=== PATIENT | female | born 1985 | race African-American/Black ===

== ENCOUNTER 2023-07-12 23:16 | Emergency (ER) | payer MEDICAID ==
[~2023-07-12] VITALS: Ht 162.6 cm; Wt 83.6 kg
[2023-07-12 23:33] VITALS: BP 118/72; PULSE 68; RESP 16; O2SAT 99
[2023-07-13] MEDS ORDERED: METOCLOPRAMIDE HCL 10 MG TAB PO ONE (01:00)
[2023-07-13] MEDS ORDERED: SODIUM CHLORIDE 0.9% 1,000 ML IVB ONE ×2 (01:00)
[2023-07-13] MEDS ORDERED: KETOROLAC TROMETH 30 MG/ML 1ML VIAL IV ONE (01:00)
[2023-07-13] MEDS ORDERED: ONDANSETRON HCL 4 MG/2 ML VIAL IV ONE (01:00)
[2023-07-13] MEDS ORDERED: ACETAMINOPHEN 325 MG TAB PO ONE (01:00)
[2023-07-13] MEDS ORDERED: MECLIZINE HCL 25 MG TAB PO ONE (01:00)
[2023-07-13 01:33] LABS: Alanine Aminotransferase 15 U/L (7-40); Alkaline Phosphatase 56 U/L (46-116); Anion Gap 5 (5-15); Aspartate Aminotransferase 9 U/L (13-40); Blood Alcohol < 3.0 mg/dL (<10); Blood Urea Nitrogen 9 mg/dL (9-23); Calcium 8.8 mg/dL (8.7-10.4); Carbon Dioxide 27 mmol/L (20-30); Chloride 107 mmol/L (98-107); Glucose 99 mg/dL (74-106); Magnesium 1.9 mg/dL (1.6-2.6); Potassium 4.1 mmol/L (3.5-5.1); Sodium 139 mmol/L (136-145)
[2023-07-13 01:34] LABS: Bilirubin, Total 0.2 mg/dL (0.2-1.0); Total Protein 6.6 g/dL (5.7-8.2)
[2023-07-13 01:51] LABS: Basophils # (auto) 0 10 ^3/uL (0-0.2); Basophils % (auto) 0.7 % (0.0-2.0); Eosinophils # (auto) 0.1 10 ^3/uL (0-0.8); Eosinophils % (auto) 1.5 % (0.0-7.0); Hematocrit 39.2 % (36.0-46.0); Lymphocytes # (auto) 2.7 10 ^3/uL (0.4-5.4); Lymphocytes % (auto) 36.5 % (10.0-50.0); Mean Corpuscular Hemoglobin 28.3 pg (28.0-32.0); Mean Corpuscular Hgb Conc. 33.1 g/dL (32.0-36.0); Mean Corpuscular Volume 85.4 fL (80.0-100.0); Monocytes # (auto) 0.5 10 ^3/uL (0-1.3); Monocytes % (auto) 6.7 % (0.0-12.0); Neutrophils % (auto) 54.6 % (37.0-80.0); Red Blood Cells 4.59 10^6/uL (4.0-5.20); Red Cell Distribution Width 14.5 % (11.8-14.3); White Blood Cell 7.3 10^3/uL (4.4-10.8)
[2023-07-13 04:35] LABS: BUN/Creatinine Ratio 9.8 (10.0-20.0)
== END 2023-07-13 05:06 | disposition left against medical advice (07) ==
LOC: ER 23:16
DX: R42 Dizziness and giddiness (principal); M54.50 Low back pain, unspecified; Z79.899 Other long term (current) drug therapy
CPT/HCPCS: 36415; 70450; 71045; 72125; 72131; 80053; 80320; 83735; 83880; 84484; 85025; 96361; 96374; 96375; 99285; J1885; J2405; J7030; J8597

== ENCOUNTER 2024-06-18 15:04 | Inpatient (IN) | payer MEDICAID ==
[~2024-06-18] VITALS: Ht 165.1 cm; Wt 98.8 kg
--- NOTE | 2024-06-18 15:35 | ED.PDOC ---
GI ASSESSMENT HPI Comments HPI: Poor Historian. 38-year-old female presents to the chart for one day history of epigastric pain that is constant nonradiating with associated nausea. Denies any vomiting or diarrhea. Patient went to urgent Care was sent here for further evaluation. Patient states she had this kind of pain in the past and was usually due to constipation. Patient has increased urinary frequency but denies any burning with urination. Pain is nonradiating. Pain is worse with food. Past Medcial History: Migraines, constipation, Past Surgical History: Foot surgery, right breast lumpectomy noncancerous REVIEW OF SYSTEMS: CONSTITUTIONAL: Denies acute: fever, diaphoresis, chills, HEAD: Denies acute: headache, photophobia Eyes: Denies acute: Double vision, vision loss, eye pain, eye discharge. EARS: Denies acute: tinnitus, hearing loss, ear discharge, ear pain, THROAT: Denies acute: sore throat, swelling, difficulty swallowing , pain with swallowing, change in voice. NECK: Denies acute: neck pain, neck swelling, stiff neck. HEART: Denies acute : chest pain, palpitations, LUNGS: Denies acute: SOB, wheezing, cough, hemoptysis ABDOMEN: Denies acute: Vomiting, diarrhea, melena , hematemesis, hematochezia SKIN: Denies acute: rash, redness, lesions, itchiness. EXTREMITIES: Denies acute: calf pain, numbness, tingling, weakness, denies pain in extremity. Denies acute: Low back pain. Neuro: Denies acute: focal neurological deficit, motor or sensory focal neurological deficit, tremors, seizure like activity, confusion, dizziness, change in mental status, loss of bowel or bladder function, cauda equina like symptoms. : Denies acute: dysuria, hematuria, flank pain, PSYCH: Denies acute: hallucination, suicidal ideation, homicidal ideation. FEMALE: Denies acute: abnormal vaginal bleeding, foul odor, unusual discharge. PHYSICAL EXAM: General: no acute distress, awake and alert. Head: normocephalic, atraumatic. Neck: supple, trachea is midline, no swelling. Throat: Normal phonation. Eyes:, no erythema, no purulent discharge, no proptosis, no icterus. Heart: regular rate, regular rhythm, no significant murmur appreciated. Lungs: no apparent respiratory distress, Able to speak in full sentences. No wheezing, no rhonchi, no crackles. No stridors Clear to auscultation bilaterally. Abdomen: non tender to palpation, non distended, soft, no guarding, no rebound, + bowel sounds. Neuro: Awake, Alert, oriented to name, self, situation, follows commands GCS=15. Speech is normal. Skin: no petechia, no purpura, no cyanosis, non-pale, not jaundice. Lower extremities: --no - Pitting edema no deformity, no focal swelling, no calf TTP. Makes eye contact. moves all four extremities. Face: no apparent facial droop. No CVA tenderness to percussion bilaterally. Ambulating in the ED independently. Ears: Normal appearing TM b/l, Stroke: finger to nose cerebellar testing is intact. No pronator drift. Symmetrical recyclable products sorter muscle strength b/l PERRLA, EOM-I CN 2-12 are grossly intact, Pedal pulses are palpable. No nystagmus. No nuchal rigidity, Kernig's sign, Brudzinski's sign, no meningeal signs. Chief Complaint: Abdominal Pain Time Seen by MD: 15:22 Primary Care Provider: LAW Reviewed Notes: Nurses Notes, Allergies Allergies: Coded Allergies: NO KNOWN ALLERGIES (Unverified , 09/13/15) Home Meds Active Scripts Metronidazole (Metronidazole) 500 Mg Tab, 500 MG PO TID for 5 Days, #15 TAB Prov:GENNA ARMSTRONG RESIDENT 06/21/24 Ciprofloxacin Hcl (Ciprofloxacin Hcl) 500 Mg Tab, 1 TAB PO BID for 5 Days, #10 TAB Prov:GENNA ARMSTRONG RESIDENT 06/21/24 Information Source: Patient Mode of Arrival: Wheelchair Past Medical History PAST MEDICAL HISTORY: Denies Surgical History: Denies all surgeries Social History Smoker: Cigarettes, Less Than 1 Pack/Day Alcohol: Rarely Drugs: Denies Drug Use Lives In: Home Was a procedure done? Was a procedure done?: No GI differential Dx Differential Diagnosis: Other (DDX include Diverticulitis, colitis, gastroenteritis, acute abdomen, SBO, enteritis, constipation, volvulus, appendicitis, Gallbladder disease, choledocolithiasis, ascending cholangitis, pancreatitis, intraAbdominal mass/neoplasm, hepatitis, UTI, pylonephritis, kidney stone, aneurysm, dissection, Inflammatory bowel disease, gastroparesis, ischemic bowel, ovarian torsion, ovarian cyst/mass, tubo-ovarian abscess, , ectopic , PID, STD.) X-Ray, Labs, Meds, VS Vital Signs Date Time Temp Pulse Resp B/P (MAP) Pulse Ox O2 Delivery O2 Flow Rate FiO2 06/18/24 22:08 68 14 98 Room Air* 0 21 06/18/24 21:34 116/76 06/18/24 20:46 98.1 72 18 108/77 (87) 100 98.1 06/18/24 17:07 97.7 83 20 141/100 (114) 100 97.7 06/18/24 17:07 83 20 100 Room Air 06/18/24 15:36 80 06/18/24 15:25 98.8 75 17 140/83 (102) 100 Lab Test 06/18/24 16:23 06/18/24 15:46 Range/Units Urine Color Light-yellow Yellow Urine Clarity Clear Clear Urine pH 5.0 5.0-9.0 Urine Specific [place] 1.013 1.001-1.035 Urine Protein Negative Negative Urine Ketones 1+ H Negative Urine Blood Negative Negative /uL Urine Nitrite Negative Negative Urine Bilirubin Negative Negative Urine Urobilinogen Normal Negative mg/dL Urine Leukocyte Esterase Negative Negative /uL Urine RBC None seen 0 - 4 /hpf Urine WBC <1 0 - 5 /hpf Urine Squamous Epithelial Cells Few <5 /hpf Urine Bacteria None seen None Seen /hpf Urine Glucose Normal Normal mg/dL White Blood Count 9.0 4.4-10.8 10^3/uL Red Blood Count 4.97 4.0-5.20 10^6/uL Hemoglobin 13.8 12.2-16.2 g/dL Hematocrit 42.2 36.0-46.0 % Mean Corpuscular Volume 84.9 80.0-100.0 fL Mean Corpuscular Hemoglobin 27.8 L 28.0-32.0 pg Mean Corpuscular Hemoglobin Concent 32.7 32.0-36.0 g/dL Red Cell Distribution Width 14.9 H 11.8-14.3 % Platelet Count 366 140-450 10^3/uL Mean Platelet Volume 7.4 6.9-10.8 fL Neutrophils (%) (Auto) 72.6 37.0-80.0 % Lymphocytes (%) (Auto) 20.4 10.0-50.0 % Monocytes (%) (Auto) 6.1 0.0-12.0 % Eosinophils (%) (Auto) 0.4 0.0-7.0 % Basophils (%) (Auto) 0.5 0.0-2.0 % Neutrophils # (Auto) 6.5 1.6-8.6 10 ^3/uL Lymphocytes # (Auto) 1.8 0.4-5.4 10 ^3/uL Monocytes # (Auto) 0.5 0-1.3 10 ^3/uL Eosinophils # (Auto) 0 0-0.8 10 ^3/uL Basophils # (Auto) 0 0-0.2 10 ^3/uL Nucleated Red Blood Cells 0.2 % Sodium Level 140 136-145 mmol/L Potassium Level 4.1 3.5-5.1 mmol/L Chloride Level 108 H 98-107 mmol/L Carbon Dioxide Level 23 20-31 mmol/L Anion Gap 9 5-15 Blood Urea Nitrogen 6 L 9-23 mg/dL Creatinine 0.79 0.550-1.02 mg/dL Glomerular Filtration Rate Calc 99 >90 mL/min BUN/Creatinine Ratio 7.6 L 10.0-20.0 Serum Glucose 87 74-106 mg/dL Lactic Acid Level 1.8 0.4-2.0 mmol/L Calcium Level 9.9 8.7-10.4 mg/dL Total Bilirubin 0.3 0.2-1.0 mg/dL Aspartate Amino Transferase (AST) 17 13-40 U/L Alanine Aminotransferase (ALT) 24 7-40 U/L Alkaline Phosphatase 57 46-116 U/L Troponin I High Sensitivity < 3 L </=34 ng/L Total Protein 7.1 5.7-8.2 g/dL Albumin 4.6 3.2-4.8 g/dL Lipase 23 12-53 U/L Beta HCG, Quantitative 0.0 L 1.5-4.2 mIU/mL [address] [address] Ph: [phone] DIAGNOSTIC IMAGING Diagnostic Imaging Report : [id number] Signed PATIENT: JENNY BAUTISTA ACCT: [id number] UNIT: [id number] : 1985 LOC: ER ROOM / BED: / AGE / SEX: 38 / F ADM STATUS: REG ER SERVICE 1526 ORDERING PHYSICIAN: RUPALI JOE DO PROCEDURE(s): ABPL - CT AB PEL WO CON-NO ORAL OR IV REASON: abd pain ORDER NUMBER(s): [id number], ACCESSION NUMBER(s): [id number] Procedure: CT CT AB PEL WO CON-NO ORAL OR IV 06/18/2024 05:05 PM Indication:abd pain. Comparison Study: None available at time of dictation. Technique: Axial images were obtained and reformatted in coronal and sagittal planes. All CT scans at this medical facility are performed using dose modulation techniques as appropriate to a performed exam including the following: Automated exposure control was utilized; adjustment of the MA and/or KV according to patient size; and use of iterative reconstruction technique. CT Dose: CTDI volume is 15.18 mGy. Dose-length product is 800.15 mGy*cm FINDINGS: Lower Chest: Unremarkable. Hepatobiliary: Gallbladder is moderately distended. No gallbladder wall thickening, pericholecystic fluid or calcified gallstones noted. Spleen: Unremarkable. Pancreas: Unremarkable. Adrenal Glands: Unremarkable. tract: The kidneys are normal in size bilaterally without hydronephrosis or nephrolithiasis. The urinary bladder is unremarkable. GI tract: The stomach is grossly normal in appearance. No evidence of small bowel obstruction. The large bowel is unremarkable. A tubular structure is seen in right lower quadrant extending from the cecum to the right ovary surrounding fat stranding likely acute appendicitis. The differential diagnosis includes hydrosalpinx. Lymphatics: No mesenteric, retroperitoneal or periportal lymphadenopathy. Vasculature: The abdominal aorta is normal in in caliber. Pelvic Organs: The right ovary is slightly enlarged and appears edematous likely reactive to appendicitis. The left ovary is unremarkable. The uterus is anteverted and slightly bulky. Bones/soft tissues: No acute abnormality. Degenerative disc disease at L5-S1 noted. Other: None. IMPRESSION: 1. A tubular structure is seen in right lower quadrant extending from the cecum to the right ovary surrounding fat stranding likely acute non complicated appendicitis. The differential diagnosis includes hydrosalpinx. Recommend correlation pelvic sonogram and surgical consultation. ATED BY: MARIANNE GROSS MD DICTATED DATE/TIME: 06/18/241825 SIGNED BY: MARIANNE GROSS MD SIGNED DATE/TIME: 06/18/241825 CC: [place] [address] Ph: [phone] DIAGNOSTIC IMAGING Diagnostic Imaging Report : [id number] Signed PATIENT: JENNY BAUTISTA ACCT: [id number] UNIT: [id number] : 1985 LOC: ER ROOM / BED: / AGE / SEX: 38 / F ADM STATUS: REG ER SERVICE 37 ORDERING PHYSICIAN: RUPALI JOE DO PROCEDURE(s): PELUS - PELVIC REASON: abd pain ORDER NUMBER(s): [id number], ACCESSION NUMBER(s): [id number] Procedure: US PELVIC Study Date and Requested Time: 06/18/2024 07:43 PM Study Description: US PELVIC History: abd pain Comparison: CT abdomen and pelvis 06/18/2024 Technique: Multiple transabdominal and transvaginal high resolution tom-scale images obtained of the uterus and adnexa with color Doppler for evaluation of adnexal blood flow and vascularity as indicated. Findings: Uterus 10.1 x 5.8 x 6.3 cm, with homogeneous echotexture. Endometrium within normal limits, measuring 0.5 cm in thickness with smooth contour. Cervix within normal limits. Multiple nabothian cysts are noted, largest measuring up to 0.8 cm Right ovary measures 2.8 x 1.5 x 2.3 cm with a 0.9 cm dominant follicle /small cyst. Left ovary measures 2 x 1.4 x 2.3 cm with a 1.1 cm dominant follicle /small cyst. Normal ovarian color Doppler flow bilaterally. Small amount of free fluid of the right adnexa. Impression: Fibroid uterus. Nabothian cysts are noted. Small amount of free fluid of the right adnexa. No tubular structure is visualized over the right adnexa. The tubular structure noted on CT within the right hemipelvis appears to represent a fluid-filled distended appendix with mild adjacent fat stranding. ATED BY: LEANNA IBANEZ DO DICTATED DATE/TIME: 06/18/242036 SIGNED BY: LEANNA IBANEZ DO SIGNED DATE/TIME: 06/18/242036 CC: [address] [address] Ph: [phone] DIAGNOSTIC IMAGING Diagnostic Imaging Report : [id number] Signed PATIENT: JENNY BAUTISTA ACCT: [id number] UNIT: [id number] : 1985 LOC: OVERFLOW ROOM / BED: 1018-ER / A AGE / SEX: 38 / F ADM STATUS: ADM IN SERVICE 1 ORDERING PHYSICIAN: HAMMAD VALLE RESIDENT PROCEDURE(s): CXR1 - CHEST XRAY 1 VIEW REASON: pre op clearance ORDER NUMBER(s): [id number], ACCESSION NUMBER(s): [id number] CHEST RADIOGRAPH Indication:pre op clearance Technique: Single frontal view of the chest was obtained Comparison: XY CHEST PORTABLE on DOS: 07/13/23 FINDINGS: Lines and Tubes: None Lungs: No focal consolidation. Pleura: No effusion.No pneumothorax. Cardiomediastinal contours: Unremarkable Bones: No acute osseous abnormality. IMPRESSION: 1. No acute cardiopulmonary disease. HS:Y ATED BY: BRODIE LIZAMA MD DICTATED DATE/TIME: 06/19/24815 SIGNED BY: BRODIE LIZAMA MD SIGNED DATE/TIME: 06/19/24815 CC: Time of 1ST Reevaluation: 19:37 (The case was discussed with the General surgery team (HPI, physical exam, labs and diagnostic tests that were available at the time of disposition, ED course, treatment plan) on the phone. They to follow up with the patient in consult. They recommend admitting the patient to the hospital. Dr. Perdomo) Reevaluation 1ST: Unchanged Patient Education/Counseling: Diagnosis, Treatment Family Education/Counseling: No Family Present Comments Patient presented with the above HPI.-abdominal pain-----workup was initiated. patient was found with the above mentioned diagnosis. Patient was given: Fentanyl, fluids, Zosyn Patient ED course and VS have been stabilized. Patient has been reassessed in the ED and remained in a stable condition. Pertinent incidental findings were discussed with the patient and/or family. Patient/family voices understanding and is agreeable with plan. Patient has been observed in the ED adequate length of time to insure improvement/stability. General surgery was consulted. patient was admitted to the medicine team for further evaluation and treatment of their presentation. All the reports of any imaging studies that were ordered by myself were reviewed by myself. Departure 1 Departure Time of Disposition: 19:02 Impression: Primary Impression: Epigastric abdominal pain Additional Impression: Appendicitis Disposition: ADMITTED INPATIENT Admit to: Tele Condition: Guarded e-Prescriptions Metronidazole (Metronidazole) 500 Mg Tab 500 MG PO TID for 5 Days, #15 TAB Prov: GENNA ARMSTRONG RESIDENT 06/21/24 Ciprofloxacin Hcl (Ciprofloxacin Hcl) 500 Mg Tab 1 TAB PO BID for 5 Days, #10 TAB Prov: GENNA ARMSTRONG RESIDENT 06/21/24 Discharged With: Self Critical Care Note Critical Care Time?: No RUPALI JOE DO Jun 18, 2024 15:35
--- NOTE | 2024-06-18 16:07 | ECG ---
[facility] Test Date: 2024-06-18 Test Time: 15:36:36 Pat Name: JENNY BAUTISTA Department: ED Room: 0281 Gender: F [employer]or: : 1985 Requested By: RUPALI JOE Order Number: [id number] Reading MD: Piyush Trammell Measurements Intervals [place] Rate: 80 P: 74 [place]: 154 QRS: 17 QRSD: 85 T: 41 QT: 401 QTc: 463 Interpretive Statements Sinus rhythm Low voltage, precordial leads Electronically Signed On 06-21-2024 14:29:48 PDT by Piyush Trammell Please click the below link to view image of tracing.
[2024-06-18 16:12] LABS: Basophils # (auto) 0 10 ^3/uL (0-0.2); Basophils % (auto) 0.5 % (0.0-2.0); Eosinophils # (auto) 0 10 ^3/uL (0-0.8); Eosinophils % (auto) 0.4 % (0.0-7.0); Hematocrit 42.2 % (36.0-46.0); Hemoglobin 13.8 g/dL (12.2-16.2); Lymphocytes # (auto) 1.8 10 ^3/uL (0.4-5.4); Lymphocytes % (auto) 20.4 % (10.0-50.0); Mean Corpuscular Hemoglobin 27.8 pg (28.0-32.0); Mean Corpuscular Hgb Conc. 32.7 g/dL (32.0-36.0); Mean Corpuscular Volume 84.9 fL (80.0-100.0); Monocytes # (auto) 0.5 10 ^3/uL (0-1.3); Monocytes % (auto) 6.1 % (0.0-12.0); Neutrophils # (auto) 6.5 10 ^3/uL (1.6-8.6); Neutrophils % (auto) 72.6 % (37.0-80.0); Nucleated Red Blood Cells % 0.2 %; Platelet Count (auto) 366 10^3/uL (140-450); Red Blood Cells 4.97 10^6/uL (4.0-5.20); Red Cell Distribution Width 14.9 % (11.8-14.3)
[2024-06-18 16:24] LABS: Urine Bacteria None Seen /hpf (None Seen)
[2024-06-18 16:34] LABS: Urine Blood Negative /uL (Negative); Urine Clarity Clear (Clear); Urine Color Light-Yellow (Yellow); Urine Protein, UAD Negative (Negative); Urine Specific Gravity 1.013 (1.001-1.035); Urine Urobilinogen Normal (Negative); Urine WBC <1 /hpf (0 - 5)
[2024-06-18 16:35] LABS: Alanine Aminotransferase 24 U/L (7-40); Albumin 4.6 g/dL (3.2-4.8); Alkaline Phosphatase 57 U/L (46-116); Anion Gap 9 (5-15); Aspartate Aminotransferase 17 U/L (13-40); BUN/Creatinine Ratio 7.6 (10.0-20.0); Blood Urea Nitrogen 6 mg/dL (9-23); Calcium 9.9 mg/dL (8.7-10.4); Carbon Dioxide 23 mmol/L (20-31); Chloride 108 mmol/L (98-107); Glucose 87 mg/dL (74-106); Lipase 23 U/L (12-53); Potassium 4.1 mmol/L (3.5-5.1); Sodium 140 mmol/L (136-145)
[2024-06-18 16:36] LABS: Bilirubin, Total 0.3 mg/dL (0.2-1.0); Total Protein 7.1 g/dL (5.7-8.2)
[2024-06-18] MEDS: ONDANSETRON ODT 4 MG TAB PO ONE (16:52)
--- NOTE | 2024-06-18 18:29 | DVH ---
Procedure: CT CT AB PEL WO CON-NO ORAL OR IV 06/18/2024 05:05 PM Indication:abd pain. Comparison Study: None available at time of dictation. Technique: Axial images were obtained and reformatted in coronal and sagittal planes. All CT scans at this medical facility are performed using dose modulation techniques as appropriate t o a performed exam including the following: Automated exposure control was utilized; adjustment of th e MA and/or KV according to patient size; and use of iterative reconstruction technique. CT Dose: CTDI volume is 15.18 mGy. Dose-length product is 800.15 mGy*cm FINDINGS: Lower Chest: Unremarkable. Hepatobiliary: Gallbladder is moderately distended. No gallbladder wall thickening, pericholecystic f luid or calcified gallstones noted. Spleen: Unremarkable. Pancreas: Unremarkable. Adrenal Glands: Unremarkable. tract: The kidneys are normal in size bilaterally without hydronephrosis or nephrolithiasis. The urinary bladder is unremarkable. GI tract: The stomach is grossly normal in appearance. No evidence of small bowel obstruction. The l arge bowel is unremarkable. A tubular structure is seen in right lower quadrant extending from the cecum to the right ovary surrounding fat stranding likely acute appendicitis. The differential diag nosis includes hydrosalpinx. Lymphatics: No mesenteric, retroperitoneal or periportal lymphadenopathy. Vasculature: The abdominal aorta is normal in in caliber. Pelvic Organs: The right ovary is slightly enlarged and appears edematous likely reactive to appendic itis. The left ovary is unremarkable. The uterus is anteverted and slightly bulky. Bones/soft tissues: No acute abnormality. Degenerative disc disease at L5-S1 noted. Other: None. IMPRESSION: 1. A tubular structure is seen in right lower quadrant extending from the cecum to the right ovary [place] rrounding fat stranding likely acute non complicated appendicitis. The differential diagnosis includ es hydrosalpinx. Recommend correlation pelvic sonogram and surgical consultation.
--- NOTE | 2024-06-18 20:39 | DVH ---
Procedure: US PELVIC Study Date and Requested Time: 06/18/2024 07:43 PM Study Description: US PELVIC History: abd pain Comparison: CT abdomen and pelvis 06/18/2024 Technique: Multiple transabdominal and transvaginal high resolution tom-scale images obtained of the uterus and adnexa with color Doppler for evaluation of adnexal blood flow and vascularity as indicat ed. Findings: Uterus 10.1 x 5.8 x 6.3 cm, with homogeneous echotexture. Endometrium within normal limits, measuring 0.5 cm in thickness with smooth contour. Cervix within normal limits. Multiple nabothian cysts are noted, largest measuring up to 0.8 cm Right ovary measures 2.8 x 1.5 x 2.3 cm with a 0.9 cm dominant follicle /small cyst. Left ovary measu res 2 x 1.4 x 2.3 cm with a 1.1 cm dominant follicle /small cyst. Normal ovarian color Doppler flow b ilaterally. Small amount of free fluid of the right adnexa. Impression: Fibroid uterus. Nabothian cysts are noted. Small amount of free fluid of the right adnexa. No tubular structure is visualized over the right adnexa. The tubular structure noted on CT within th e right hemipelvis appears to represent a fluid-filled distended appendix with mild adjacent fat stra nding.
[2024-06-18] MEDS: fentaNYL CITRATE 100 MCG/2 ML VL IV ONE (21:34)
[2024-06-18] MEDS: PIPERACILLIN-TAZOB 3.375GM 100 ML IV ONE (21:41)
[2024-06-18] MEDS: SODIUM CHLORIDE 0.9% 1,000 ML IV ONE (21:41)
[2024-06-18 22:08] VITALS: PULSE 68; RESP 14; O2SAT 98
[2024-06-18] MEDS ORDERED: MORPHINE SULFATE INJ 2 MG/ml SYRG IV PRN (22:45)
[2024-06-18] MEDS: SODIUM CHLORIDE 0.9% 1,000 ML IV SCH (22:45)
[2024-06-18] MEDS ORDERED: NITROGLYCERIN 0.4 MG SL TAB SL PRN (22:45)
--- NOTE | 2024-06-18 23:39 | DVHHPRES ---
History of Present Illness Resident Creating Document: HAMMAD VALLE RESIDENT History of Present Illness JENNY BAUTISTA is a 38 years old female with no significant past medical history presented to the ED with the chief complaints of epigastric pain since on the day of admission. Patient reported this morning she started having intermittent abdominal pain, which is sharp and burning with the no radiation initially , associated with nausea vomiting . Patient does report pain in the umbilical and right lower quadrant and having constipation. On my assessment patient denies fever, headache, chest pain, palpitations, diarrhea and other associated symptoms. Past Medical History Migraine Past Surgical History Denies Family History Reviewed, noncontributory Past Social History Lives with the spouse. Denies smoking, alcohol and other drug abuse Review of Systems Constitutional: No: Fever, Chills, Sweats, Weakness, Malaise, Other Eyes: No: Pain, Vision change, Conjunctivae inflammation, Eyelid inflammation, Other, Redness ENT: No: Ear pain, Ear discharge, Nose pain, Nose discharge, Nose congestion, Mouth pain, Mouth swelling, Throat pain, Throat swelling, Other Respiratory: No: Cough, Dry, Shortness of breath, SOB with excertion, Wheezing, Hemoptysis, Pleuritic Pain, Sputum, Wheezing, Other Cardiovascular: No: Chest Pain, Palpitations, Orthopnea, Paroxysmal Noc. Dyspnea, Edema, Lt Headedness, Other Gastrointestinal: Abdominal Pain, Constipation Genitourinary: No Dysuria, No Frequency, No Incontinence, No Hematuria, No Retention, No Other Musculoskeletal: No: other, neck pain, shoulder pain, arm pain, back pain, hand pain, leg pain, foot pain Skin: No: Rash, Lesions, Jaundice, Bruising, Other Neurological: No: Weakness, Numbness, Incoordination, Change in speech, Confusion, Seizures, Other Allergies: Coded Allergies: NO KNOWN ALLERGIES (Unverified , 09/13/15) Medications Current Medications Medications Dose Ordered Sig/Jai Route Start Time Stop Time Status Last Admin Dose Admin Sodium Chloride 10 ml Q8HR IV 06/19/24 06:00 Sodium Chloride 1,000 ml @ 60 mls/hr [id number] IV 06/18/24 22:45 Ondansetron HCl 4 mg Q4HP PRN IV 06/18/24 22:45 Docusate Sodium 100 mg BIDPRN PRN PO 06/18/24 22:45 Acetaminophen 650 mg Q6HP PRN PO 06/18/24 22:45 Morphine Sulfate 2 mg Q4HPRN PRN IV 06/18/24 22:45 Nitroglycerin 0.4 mg Q5MINP PRN SL 06/18/24 22:45 Morphine Sulfate 2 mg Q30M PRN IV 06/18/24 22:45 Exam Vital Signs Vital Signs Date Time Temp Pulse Resp B/P (MAP) Pulse Ox O2 Delivery O2 Flow Rate FiO2 06/18/24 22:08 68 14 98 Room Air* 0 21 06/18/24 21:34 116/76 06/18/24 20:46 98.1 98.1 Exam Pt is lying on bed General Appearance: Alert, Oriented X3, Cooperative, Not in acute distress HEENT: Atraumatic, Mucous membranes moist/pink Respiratory: Clear to auscultation, Normal air movement, No added sounds Cardiovascular: Regular rate, Normal S1, Normal S2, No murmurs Abdominal: Epigastric, umbilical, right lower quadrant tenderness Extremities: No edema, Normal pulses, No tenderness/swelling Skin: No Significant rash, Neuro: Normal speech, sensorimotor deficits none Psych/Mental Status: Mental status NL, Mood NL Nurse was there as sharperone during examination Labs/Xrays Labs Test 06/18/24 16:23 06/18/24 15:46 Range/Units Urine Color Light-yellow Yellow Urine Clarity Clear Clear Urine pH 5.0 5.0-9.0 Urine Specific Diana 1.013 1.001-1.035 Urine Protein Negative Negative Urine Ketones 1+ H Negative Urine Blood Negative Negative /uL Urine Nitrite Negative Negative Urine Bilirubin Negative Negative Urine Urobilinogen Normal Negative mg/dL Urine Leukocyte Esterase Negative Negative /uL Urine RBC None seen 0 - 4 /hpf Urine WBC <1 0 - 5 /hpf Urine Squamous Epithelial Cells Few <5 /hpf Urine Bacteria None seen None Seen /hpf Urine Glucose Normal Normal mg/dL White Blood Count 9.0 4.4-10.8 10^3/uL Red Blood Count 4.97 4.0-5.20 10^6/uL Hemoglobin 13.8 12.2-16.2 g/dL Hematocrit 42.2 36.0-46.0 % Mean Corpuscular Volume 84.9 80.0-100.0 fL Mean Corpuscular Hemoglobin 27.8 L 28.0-32.0 pg Mean Corpuscular Hemoglobin Concent 32.7 32.0-36.0 g/dL Red Cell Distribution Width 14.9 H 11.8-14.3 % Platelet Count 366 140-450 10^3/uL Mean Platelet Volume 7.4 6.9-10.8 fL Neutrophils (%) (Auto) 72.6 37.0-80.0 % Lymphocytes (%) (Auto) 20.4 10.0-50.0 % Monocytes (%) (Auto) 6.1 0.0-12.0 % Eosinophils (%) (Auto) 0.4 0.0-7.0 % Basophils (%) (Auto) 0.5 0.0-2.0 % Neutrophils # (Auto) 6.5 1.6-8.6 10 ^3/uL Lymphocytes # (Auto) 1.8 0.4-5.4 10 ^3/uL Monocytes # (Auto) 0.5 0-1.3 10 ^3/uL Eosinophils # (Auto) 0 0-0.8 10 ^3/uL Basophils # (Auto) 0 0-0.2 10 ^3/uL Nucleated Red Blood Cells 0.2 % Sodium Level 140 136-145 mmol/L Potassium Level 4.1 3.5-5.1 mmol/L Chloride Level 108 H 98-107 mmol/L Carbon Dioxide Level 23 20-31 mmol/L Anion Gap 9 5-15 Blood Urea Nitrogen 6 L 9-23 mg/dL Creatinine 0.79 0.550-1.02 mg/dL Glomerular Filtration Rate Calc 99 >90 mL/min BUN/Creatinine Ratio 7.6 L 10.0-20.0 Serum Glucose 87 74-106 mg/dL Lactic Acid Level 1.8 0.4-2.0 mmol/L Calcium Level 9.9 8.7-10.4 mg/dL Total Bilirubin 0.3 0.2-1.0 mg/dL Aspartate Amino Transferase (AST) 17 13-40 U/L Alanine Aminotransferase (ALT) 24 7-40 U/L Alkaline Phosphatase 57 46-116 U/L Troponin I High Sensitivity < 3 L </=34 ng/L Total Protein 7.1 5.7-8.2 g/dL Albumin 4.6 3.2-4.8 g/dL Lipase 23 12-53 U/L Beta HCG, Quantitative 0.0 L 1.5-4.2 mIU/mL Assessment/Plan Assessment/Plan # ? Acute uncomplicated appendicitis -evident on CT abdominal pelvis and USG pelvis -consulted surgeon for further evaluation -currently NPO -giving IVF and pain management as needed # Nabothian cysts # Fibroid uterus -evident on pelvic ultrasound along with a small free fluid in right adnexa -consult OBGYN if needed # Hypokalemia - monitor lab -repleting NPO for now IV Protonix No VTE PPX Goals of care discussed with the patient for more than 27 minutes: Full code status Case management discussed with Dr. Elizabeth, patient and nurse Plan discussed with: Patient, Other (RN) My Orders Orders - HAMMAD VALLE RESIDENT Procedure Category Date Status Time Admit ADMIT 06/18/24 Transmitted 22:35 Allergies HI 06/18/24 In Process 22:35 Code Status CODE 06/18/24 Transmitted 22:35 Sodium Chloride Lock PHA 06/19/24 In Process (Saline Lock Ns) 06:00 Sodium Chloride 0.9% PHA 06/18/24 In Process 22:45 Ondansetron Hcl PHA 06/18/24 In Process (Zofran) 22:45 Docusate Sodium PHA 06/18/24 In Process Capsule (Colace 22:45 Complete Blood Count LAB 06/19/24 Verified 04:00 Comprehensive LAB 06/19/24 Verified Metabolic Panel 04:00 Npo (Nothing By DIET 06/19/24 Transmitted Mouth) Diet Breakfast Acetaminophen Tablet PHA 06/18/24 In Process (Tylenol Tablet) 22:45 Morphine Sulfate PHA 06/18/24 In Process Injection 22:45 Nitroglycerin PHA 06/18/24 In Process Sublingual (Ntrostat 22:45 Morphine Sulfate PHA 06/18/24 In Process Injection 22:45 Oxygen By Nasal RT 06/18/24 Transmitted Cannula 22:35 Stat Ekg For Chest HI 06/18/24 In Process Pain 22:35 Notify Of Changes HI 06/18/24 In Process From Base 22:35 Bench Chemist For HI 06/18/24 In Process 24 Hours 22:35 Emergency Dysrhythmia HI 06/18/24 In Process Protocol 22:35 Rhythm Strips Once HI 06/18/24 In Process Every Shift 22:35 Date of Service: Jun 18, 2024 Billing Provider: ESPERANZA ELIZABETH MD Common Visit Codes: [id number] INP/OBS CARE (HIGH) HAMMAD VALLE RESIDENT Jun 18, 2024 23:39 ESPERANZA ELIZABETH MD Jun 19, 2024 08:56
[2024-06-19] MEDS: ONDANSETRON HCL 4 MG/2 ML VIAL IV PRN (00:17)
[2024-06-19] MEDS: MORPHINE SULFATE INJ 2 MG/ml SYRG IV PRN (00:18)
[2024-06-19 03:06] LABS: Basophils # (auto) 0.1 10 ^3/uL (0-0.2); Basophils % (auto) 0.7 % (0.0-2.0); Eosinophils # (auto) 0.1 10 ^3/uL (0-0.8); Eosinophils % (auto) 0.9 % (0.0-7.0); Hematocrit 38.1 % (36.0-46.0); Hemoglobin 12.5 g/dL (12.2-16.2); Lymphocytes # (auto) 2.4 10 ^3/uL (0.4-5.4); Mean Corpuscular Hemoglobin 28.1 pg (28.0-32.0); Mean Corpuscular Hgb Conc. 32.8 g/dL (32.0-36.0); Mean Corpuscular Volume 85.6 fL (80.0-100.0); Monocytes # (auto) 0.6 10 ^3/uL (0-1.3); Monocytes % (auto) 7.9 % (0.0-12.0); Neutrophils # (auto) 4.4 10 ^3/uL (1.6-8.6); Neutrophils % (auto) 58.5 % (37.0-80.0); Nucleated Red Blood Cells % 0.1 %; Platelet Count (auto) 298 10^3/uL (140-450); Red Blood Cells 4.45 10^6/uL (4.0-5.20); Red Cell Distribution Width 14.6 % (11.8-14.3); White Blood Cell 7.5 10^3/uL (4.4-10.8)
[2024-06-19 03:20] LABS: Alanine Aminotransferase 17 U/L (7-40); Albumin 3.7 g/dL (3.2-4.8); Alkaline Phosphatase 48 U/L (46-116); Anion Gap 6 (5-15); Aspartate Aminotransferase 10 U/L (13-40); Bilirubin, Total 0.6 mg/dL (0.2-1.0); Calcium 8.8 mg/dL (8.7-10.4); Carbon Dioxide 26 mmol/L (20-31); Chloride 110 mmol/L (98-107); Glucose 88 mg/dL (74-106); Potassium 3.4 mmol/L (3.5-5.1); Sodium 142 mmol/L (136-145); Total Protein 6.1 g/dL (5.7-8.2)
[2024-06-19 03:30] LABS: BUN/Creatinine Ratio 6.3 (10.0-20.0); Blood Urea Nitrogen < 5 mg/dL (9-23)
[2024-06-19] MEDS: SODIUM CHLOR 0.9% PF (SALINE LOCK) 10ML VIAL/SYR IV SCH (06:00)
[2024-06-19] MEDS: cefTRIAXone 1GM/50ML D5W 50 ML IV SCH (06:21)
[2024-06-19] MEDS ORDERED: POTASSIUM CHL 20MEQ/100ML 100 ML IV ONE (06:30)
[2024-06-19] MEDS: metroNIDAZOLE 500MG/100ML 100 ML IV SCH ×2 (06:41→14:30)
[2024-06-19] MEDS: POTASSIUM EFFERVESENT TAB 25 MEQ PO ONE (06:42)
[2024-06-19 08:00] VITALS: PULSE 72; RESP 16; O2SAT 99
--- NOTE | 2024-06-19 08:18 | DVH ---
CHEST RADIOGRAPH Indication:pre op clearance Technique: Single frontal view of the chest was obtained Comparison: XY CHEST PORTABLE on DOS: 07/13/23 FINDINGS: Lines and Tubes: None Lungs: No focal consolidation. Pleura: No effusion.No pneumothorax. Cardiomediastinal contours: Unremarkable Bones: No acute osseous abnormality. IMPRESSION: 1. No acute cardiopulmonary disease. HS:Y
[2024-06-19] MEDS ORDERED: MIDAZOLAM HCL 2MG/2ML 2ml VIAL (1mg/ml) ONE (08:35)
[2024-06-19] MEDS ORDERED: fentaNYL CITRATE 100 MCG/2 ML VL ONE (08:35)
[2024-06-19] MEDS ORDERED: MEPERIDINE HCL (50 MG/ML) 1 ML VIAL ONE (08:35)
[2024-06-19] MEDS ORDERED: DexAMETHasone SOD PHOS 10MG/1ML VIAL INJ ONE (08:38)
[2024-06-19] MEDS ORDERED: PROPOFOL 10 MG/ML 20 ML IV ONE (08:38)
[2024-06-19 09:07] LABS: INR 1.03 (0.9-1.15); Partial Thromboplastin Time 26.5 SEC (24.5-34.5); Prothrombin Time 10.9 sec (9.3-11.8)
[2024-06-19] MEDS ORDERED: KETOROLAC TROMETH 30 MG/ML 1ML VIAL ONE (09:56)
[2024-06-19] MEDS: HYDROMORPHONE HCL 1 MG/ML INJ IV ONE (10:00)
[2024-06-19] MEDS ORDERED: SUGAMMADEX 200mg/2ml Vial (100MG/ML) IV ONE (10:08)
--- NOTE | 2024-06-19 10:37 | DVHOP ---
DATE OF SURGERY: 06/19/2024 PREOPERATIVE DIAGNOSIS: Appendicitis. POSTOPERATIVE DIAGNOSIS: Appendicitis. SURGEON: Magen Allen MD ANESTHESIA: General endotracheal. ANESTHESIOLOGIST: Dr. Carter. PROCEDURE: Laparoscopy, laparoscopic appendectomy. DESCRIPTION OF PROCEDURE: Under general anesthesia with the patient's skin prepped and draped, abdomen was incised above the umbilicus and a Veress needle inserted by the hanging drop technique to establish pneumoperitoneum to 15 mmHg pressure by insufflation with carbon dioxide. With the abdomen fully distended, the needle was removed and replaced with a 5 mm trocar port through which a 0-degree viewing laparoscope was inserted and under direct vision, an additional 5 mm port was inserted through the subxiphoid skin and a 10 mm port infraumbilically. Laparoscopy was hampered by the patient's obesity; however, no obvious unexpected pathology was encountered. Appendix was inflamed and it was tortuous. It was placed on tension traced to its confluence with the cecum at the base of the appendix at the confluence with the cecum, it was crossclamped and divided using the Endo-MARLO stapler equipped with vascular aries. The fully mobilized appendix was removed from the peritoneal cavity by placement in a specimen extraction bag and removing it through the subumbilical 10 mm port site. Right lower quadrant was then irrigated, irrigant was aspirated. Hemostasis was meticulously accomplished, found to be complete. At the termination of procedure, there was no evidence of bleeding from either the port sites or from the appendicectomy site. Instrumentation was withdrawn. Pneumoperitoneum was evacuated. Fascial defect closed with 0 Vicryl. Metastatic skin aries approximating the skin edges. The patient remained stable throughout the procedure, left the operating room following an accurate needle and sponge count. No family members were present in the waiting room. Magen Allen MD PF TID: [id number] RECEIPT: [id number]
[2024-06-19] MEDS ORDERED: MIDAZOLAM HCL 2MG/2ML 2ml VIAL (1mg/ml) IV PRN (11:00)
[2024-06-19] MEDS: ONDANSETRON HCL 4 MG/2 ML VIAL IV ONE (11:00)
[2024-06-19] MEDS ORDERED: MORPHINE SULFATE 4 MG/ML SYR/VIAL IV PRN (11:00)
[2024-06-19] MEDS ORDERED: hydrALAZINE HCL 20 MG/ML VL IV PRN (11:00)
[2024-06-19] MEDS ORDERED: ePHEDrine SULFATE 50 MG/ML AMP IV PRN (11:00)
[2024-06-19] MEDS: HYDROmorphone HCL 2 MG/ML VL/or syr IV PRN (11:18)
[2024-06-19] MEDS: BUPIVACAINE 0.5% MPF INJ 30ML SDV IJ ONE (11:47)
[2024-06-19] MEDS: LIDOCAINE W/ EPINEPHRINE 1% 20ML VIAL ONE ×2 (11:47→11:48)
[2024-06-19] MEDS: BUPIVACAINE HCL 0.25% P/F 10 ML VIAL ONE (11:51)
[2024-06-19] MEDS: SUCCINYLCHOLINE CHLORIDE 20 MG/ML 10ML VIAL IV ONE (11:52)
[2024-06-19] MEDS: KETOROLAC TROMETH 30 MG/ML 1ML VIAL IV ONE (12:00)
[2024-06-19] MEDS ORDERED: ROCURONIUM 10MG/ML 10ML VIAL IV ONE (12:27)
[2024-06-19 12:40] VITALS: BP 100/66; PULSE 61; RESP 14; TEMP 98.2; O2SAT 98
[2024-06-19] MEDS: D5W/SOD CHL 0.45%/KCL 20MEQ 1,000 ML IV SCH (13:11)
[2024-06-19] MEDS: ceFAZolin 1GM/50ML 50 ML IV SCH (14:30)
--- NOTE | 2024-06-19 16:51 | DVHINCON2 ---
DATE OF CONSULTATION: 06/19/2024 SURGICAL CONSULTATION HISTORY OF PRESENT ILLNESS: The patient is a 38-year-old female being evaluated for possibility of appendicitis. She presented to the emergency room with history of epigastric pain, which migrated to the periumbilical region and subsequently migrated to the right lower quadrant. The pain was associated with nausea and several episodes of diarrhea. PAST MEDICAL HISTORY: Only positive for migraines and occasional constipation. PAST SURGICAL HISTORY: The patient had a previous foot surgery and right breast lumpectomy for benign disease. REVIEW OF SYSTEMS: Not contributory to the current illness. SOCIAL HISTORY: Nonsmoker, nondrinker, uses no illicit drugs. ALLERGIES: She has no known medicinal allergies. PHYSICAL EXAMINATION: GENERAL: Reveals a well-developed, well-nourished female, in no acute distress. HEENT: Pupils are equal, round, react to light equally. Sclerae nonicteric. Extraocular motion is intact. Uvula midline. Trachea midline. Carotids are full without bruits. Jugular veins are collapsed. HEART: Regular rate and rhythm without murmur or gallop. ABDOMEN: Nondistended, tender in the right lower quadrant with rebound tenderness, guarding, positive Rovsing and obturator sign. LABORATORY EVALUATION: Reveals a normal white count, normal differential. The patient's platelet count is normal. INR is 1.03. PT is 10.9. Chemistry shows normal electrolytes, normal bilirubin. Beta hCG is negative. Imaging was done by means of an abdominopelvic CT scan with no contrast, which shows a tubular structure in the right lower quadrant extending from the cecum to the right ovary. Subsequently, the patient underwent a pelvic ultrasound, which showed a fibroid uterus, nabothian cyst, and small amount of free fluid in the right adnexal region, tubular structures were again noted appears to represent a fluid-filled distended appendix with mild adjacent fat stranding. CLINICAL DIAGNOSIS: Acute appendicitis. ASSESSMENT AND PLAN: Laparoscopic, possibly open appendectomy. Risks and potential complications explained in detail. MD RIAZ Meza TID: [id number] RECEIPT: [id number]
[2024-06-19 17:00] VITALS: BP 108/75; PULSE 64; RESP 18; TEMP 97.6; O2SAT 97
--- NOTE | 2024-06-19 17:09 | DVHPNRES ---
Progress Note Date Seen: Jun 19, 2024 Resident Creating Document: GENNA ARMSTRONG RESIDENT Medical Necessity Reason Pt with a Central, PICC or Fol: No Subjective Review of Systems Patient is a 38-year-old female with past medical history of migraines who came in due to epigastric abdominal pain. According to the patient for the past 2 weeks she has been experiencing dizziness, headaches and a midepigastric abdominal pain. Patient notes that she went to urgent care 2 weeks ago and got a GI cocktail which helped her pain initially, however, per patient her abdominal pain returned yesterday on 06/18/2024. Patient notes that her pain was abrupt in onset, sharp and burning in character, centered in the mid abdominal region, and 10 on 10 in intensity. Past surgical history: Right breast benign cystectomy, right foot surgery Home medications: Denies Past Hospitalization: Denies Social & Personal history: Patient lives with her family and is unemployed. Quit smoking cigarettes 2 years ago, prior to that was smoking 4 cigarettes per day for 1.5 years. Denies using any drugs. Uses alcohol occasionally, last drink was 2 weeks ago. Allergies: Denies Patient seen and examined at bedside. Patient is alert and oriented to time, place person and responding to all questions. General: Reports feeling fatigue, headache and chills Eyes: No Pain, No Vision change, No Conjunctivae inflammation, No Eyelid inflammation, No Other, No Redness ENT: No Ear pain, No Ear discharge, No Nose pain, No Nose discharge, No Nose congestion, No Mouth pain, No Mouth swelling, No Throat pain, No Throat swelling, No Other Cardiovascular: No Chest Pain, Palpitations, No Orthopnea, Dyspnea, No Edema, No Lt Headedness, No Other Respiratory: No Cough, No Dry, Shortness of breath, No SOB with exertion, No Wheezing, No Hemoptysis, No Pleuritic Pain, No Sputum, No Other Gastrointestinal: Nausea, No Vomiting, No Abdominal Pain, No Diarrhea, C onstipation, No Melena, No Hematochezia, No Other Genitourinary: No Dysuria, No Frequency, No Incontinence, No Hematuria, No Retention, No Other Musculoskeletal: No other, No neck pain, No shoulder pain, No arm pain, No back pain, No hand pain, No leg pain, No foot pain Skin: No Rash, No Lesions, No Jaundice, No Bruising, No Other Objective vital signs Vital Sign Date Time Temp Pulse Resp B/P (MAP) Pulse Ox O2 Delivery O2 Flow Rate FiO2 06/19/24 13:55 Room Air* 0 21 06/19/24 12:20 65 16 114/73 (87) 99 06/19/24 10:05 97.7 97.7 Total Intake and Output 06/18/24 06/18/24 06/19/24 15:00 23:00 07:00 Intake Total 1100 ml Balance 1100 ml medications Current Medications Medications Dose Ordered Sig/Jai Route Start Time Stop Time Status Last Admin Dose Admin Sodium Chloride 10 ml Q8HR IV 06/19/24 06:00 06/19/24 14:05 10 ML Ondansetron HCl 4 mg Q4HP PRN IV 06/18/24 22:45 06/19/24 00:17 4 MG Docusate Sodium 100 mg BIDPRN PRN PO 06/18/24 22:45 Acetaminophen 650 mg Q6HP PRN PO 06/18/24 22:45 Morphine Sulfate 2 mg Q4HPRN PRN IV 06/18/24 22:45 06/19/24 00:18 2 MG Nitroglycerin 0.4 mg Q5MINP PRN SL 06/18/24 22:45 Morphine Sulfate 2 mg Q30M PRN IV 06/18/24 22:45 Ceftriaxone Sodium 50 ml @ 100 mls/hr DAILY@0600 IV 06/19/24 06:00 Hold 06/19/24 06:21 100 MLS/HR Potassium Chloride/Dextrose/ Sod Cl 1,000 ml @ 120 mls/hr Q8H20M IV 06/19/24 10:00 06/19/24 13:11 120 MLS/HR Cefazolin Sodium 50 ml @ 100 mls/hr Q8HR IV 06/19/24 14:00 06/19/24 14:30 100 MLS/HR Metronidazole 100 ml @ 100 mls/hr Q8HR IV 06/19/24 14:00 06/19/24 14:30 100 MLS/HR Examination General Appearance: Alert, Oriented X3, Cooperative, Not in acute distress HEENT: Atraumatic, Mucous membranes moist/pink Respiratory: Clear to auscultation, Normal air movement, No added sounds Cardiovascular: Regular rate, Normal S1, Normal S2, No murmurs Abdominal: Epigastric, umbilical, right lower quadrant tenderness Extremities: No edema, Normal pulses, No tenderness/swelling Skin: No Significant rash, Neuro: Normal speech, sensorimotor deficits none Psych/Mental Status: Mental status NL, Mood NL Nurse was there as sharperone during examination laboratory and microbiology Laboratory Tests 06/19/24 02:33 Test 06/19/24 02:33 Range/Units Serum Glucose 88 74-106 mg/dL Labs and/or images reviewed: Labs reviewed by me, Image(s) reviewed by me Problem List/Assessment/Plan Problem List/Assessment/Plan Acute intractable abdominal pain Acute uncomplicated appendicitis - CT abdomen pelvis: A tubular structure is seen in the right lower quadrant extending from the cecum to the right ovary surrounding fat stranding likely acute uncomplicated appendicitis. The differential diagnosis includes hydrosalpinx. - Pelvic ultrasound: Fibroid uterus. Nabothian cysts are noted. Small amount of free fluid of the right adnexa. No tubular structure is visualized over the right adnexa. The tubular structure noted on CT within the right hemipelvis appears to represent a fluid-filled distended appendix with mild adjacent fat stranding. - D5 with half NS plus potassium 20 mEq at 120 cc/hour - IV metronidazole Q 8 hours, IV cefazolin Q 8 hours - underwent laparoscopic appendectomy without any complications on 06/19/2024 Uterine leiomyoma - as seen on ultrasound - follow up with qa architect in the outpatient Hypokalemia - repleted Advanced to a mechanical soft diet Goals of care: Full code, discussed for >16 minutes on 05/30/24 Plan discussed with patient Plan discussed with Dr. Elizabeth Plan discussed with: Patient, Other (RN) My Orders My Orders Orders - GENNA ARMSTRONG RESIDENT Procedure Category Date Status Time Mechanical Soft Diet DIET 06/19/24 Transmitted Dinner Date of Service: Jun 19, 2024 Billing Provider: ESPERANZA ELIZABETH MD Common Visit Codes: [id number] INP/OBS CARE(HIGH) GENNA ARMSTRONG Jun 19, 2024 17:09 ESPERANZA ELIZABETH MD Jun 20, 2024 08:53
[2024-06-19 20:00] VITALS: PULSE 99; RESP 18; O2SAT 94
[2024-06-19 21:00] VITALS: BP_SYST 101; BP_SYST 164; BP_DIAS 60; BP_DIAS 85; PULSE 73; PULSE 75; RESP 17; RESP 18; TEMP 97.9; TEMP 98.5; O2SAT 96; O2SAT 97
[2024-06-20] VITALS (7 sets, daily range): BP systolic 90–109; BP diastolic 45–70; PULSE 67–80; RESP 17–20; TEMP 97.7–98.9; O2SAT 96–100
[2024-06-20] MEDS: DOCUSATE SOD 100 MG CAP PO PRN (05:56)
[2024-06-20 07:01] LABS: Basophils # (auto) 0 10 ^3/uL (0-0.2); Basophils % (auto) 0.1 % (0.0-2.0); Eosinophils # (auto) 0 10 ^3/uL (0-0.8); Eosinophils % (auto) 0.1 % (0.0-7.0); Hemoglobin 11.8 g/dL (12.2-16.2); Lymphocytes # (auto) 1.6 10 ^3/uL (0.4-5.4); Lymphocytes % (auto) 19.1 % (10.0-50.0); Mean Corpuscular Hemoglobin 27.7 pg (28.0-32.0); Mean Corpuscular Hgb Conc. 32.9 g/dL (32.0-36.0); Mean Corpuscular Volume 84.2 fL (80.0-100.0); Monocytes # (auto) 0.7 10 ^3/uL (0-1.3); Neutrophils % (auto) 72.7 % (37.0-80.0); Platelet Count (auto) 299 10^3/uL (140-450); Red Blood Cells 4.28 10^6/uL (4.0-5.20); Red Cell Distribution Width 14.3 % (11.8-14.3); White Blood Cell 8.3 10^3/uL (4.4-10.8)
[2024-06-20 07:16] LABS: Alanine Aminotransferase 15 U/L (7-40); Albumin 3.6 g/dL (3.2-4.8); Alkaline Phosphatase 47 U/L (46-116); Anion Gap 9 (5-15); Aspartate Aminotransferase 10 U/L (13-40); Calcium 8.9 mg/dL (8.7-10.4); Carbon Dioxide 24 mmol/L (20-31); Chloride 109 mmol/L (98-107); Glucose 105 mg/dL (74-106); Potassium 3.9 mmol/L (3.5-5.1); Sodium 142 mmol/L (136-145)
[2024-06-20 07:17] LABS: Bilirubin, Total 0.3 mg/dL (0.2-1.0); Total Protein 5.7 g/dL (5.7-8.2)
[2024-06-20 07:21] LABS: BUN/Creatinine Ratio 6.9 (10.0-20.0); Blood Urea Nitrogen < 5 mg/dL (9-23)
--- NOTE | 2024-06-20 13:29 | DVHPN2 ---
Progress Note Date Seen: Jun 20, 2024 Medical Necessity Reason Pt with a Central, PICC or Fol: No Objective vital signs Vital Sign Date Time Temp Pulse Resp B/P (MAP) Pulse Ox O2 Delivery O2 Flow Rate FiO2 06/20/24 12:45 98.5 73 18 96/58 (71) 97 98.5 06/19/24 20:00 Room Air* 0 21 Total Intake and Output 06/19/24 06/19/24 06/20/24 15:00 23:00 07:00 Intake Total 150 ml 522 ml 440 ml Balance 150 ml 522 ml 440 ml medications Current Medications Medications Dose Ordered Sig/Jai Route Start Time Stop Time Status Last Admin Dose Admin Sodium Chloride 10 ml Q8HR IV 06/19/24 06:00 06/20/24 06:13 10 ML Ondansetron HCl 4 mg Q4HP PRN IV 06/18/24 22:45 06/19/24 00:17 4 MG Docusate Sodium 100 mg BIDPRN PRN PO 06/18/24 22:45 06/20/24 05:56 100 MG Acetaminophen 650 mg Q6HP PRN PO 06/18/24 22:45 Morphine Sulfate 2 mg Q4HPRN PRN IV 06/18/24 22:45 06/20/24 10:00 2 MG Nitroglycerin 0.4 mg Q5MINP PRN SL 06/18/24 22:45 Morphine Sulfate 2 mg Q30M PRN IV 06/18/24 22:45 Ceftriaxone Sodium 50 ml @ 100 mls/hr DAILY@0600 IV 06/19/24 06:00 Hold 06/19/24 06:21 100 MLS/HR Potassium Chloride/Dextrose/ Sod Cl 1,000 ml @ 120 mls/hr Q8H20M IV 06/19/24 10:00 06/20/24 10:01 120 MLS/HR Cefazolin Sodium 50 ml @ 100 mls/hr Q8HR IV 06/19/24 14:00 06/20/24 05:50 100 MLS/HR Metronidazole 100 ml @ 100 mls/hr Q8HR IV 06/19/24 14:00 06/20/24 06:25 100 MLS/HR laboratory and microbiology Laboratory Tests 06/20/24 06:11 Test 06/20/24 06:11 Range/Units Serum Glucose 105 74-106 mg/dL Problem List/Assessment/Plan Problem List/Assessment/Plan 06/20/24 feels well. Passing flatus, tolerating po, abdomen soft and non distended, appropriately tender, wound dressings dry and clean, ok to advance po intake, DC home on Plan discussed with: Patient FRANDY OLSEN MD Jun 20, 2024 13:29
[2024-06-20] MEDS ORDERED: LACTATED RINGER'S 1,000 ML IV SCH (15:15)
--- NOTE | 2024-06-20 15:17 | DVHPNRES ---
Progress Note Date Seen: Jun 20, 2024 Resident Creating Document: GENNA ARMSTRONG RESIDENT Medical Necessity Reason Pt with a Central, PICC or Fol: No Subjective Review of Systems Patient is a 38-year-old female with past medical history of migraines who came in due to epigastric abdominal pain. According to the patient for the past 2 weeks she has been experiencing dizziness, headaches and a midepigastric abdominal pain. Patient notes that she went to urgent care 2 weeks ago and got a GI cocktail which helped her pain initially, however, per patient her abdominal pain returned yesterday on 06/18/2024. Patient notes that her pain was abrupt in onset, sharp and burning in character, centered in the mid abdominal region, and 10 on 10 in intensity. Past surgical history: Right breast benign cystectomy, right foot surgery Home medications: Denies Past Hospitalization: Denies Social & Personal history: Patient lives with her family and is unemployed. Quit smoking cigarettes 2 years ago, prior to that was smoking 4 cigarettes per day for 1.5 years. Denies using any drugs. Uses alcohol occasionally, last drink was 2 weeks ago. Allergies: Denies Patient seen and examined at bedside. Patient is alert and oriented to time, place person and responding to all questions. Patient reports mild tenderness in incisions, 7/10. Is able to pass gas, however, has not had a bowel movement yet. Advanced to a mechanical soft diet. Objective vital signs Vital Sign Date Time Temp Pulse Resp B/P (MAP) Pulse Ox O2 Delivery O2 Flow Rate FiO2 06/20/24 12:45 98.5 73 18 96/58 (71) 97 98.5 06/20/24 08:00 Room Air* 0 21 Total Intake and Output 06/19/24 06/19/24 06/20/24 15:00 23:00 07:00 Intake Total 150 ml 522 ml 440 ml Balance 150 ml 522 ml 440 ml medications Current Medications Medications Dose Ordered Sig/Jai Route Start Time Stop Time Status Last Admin Dose Admin Sodium Chloride 10 ml Q8HR IV 06/19/24 06:00 06/20/24 14:10 10 ML Ondansetron HCl 4 mg Q4HP PRN IV 06/18/24 22:45 06/19/24 00:17 4 MG Docusate Sodium 100 mg BIDPRN PRN PO 06/18/24 22:45 06/20/24 05:56 100 MG Acetaminophen 650 mg Q6HP PRN PO 06/18/24 22:45 Morphine Sulfate 2 mg Q4HPRN PRN IV 06/18/24 22:45 06/20/24 10:00 2 MG Nitroglycerin 0.4 mg Q5MINP PRN SL 06/18/24 22:45 Morphine Sulfate 2 mg Q30M PRN IV 06/18/24 22:45 Cefazolin Sodium 50 ml @ 100 mls/hr Q8HR IV 06/19/24 14:00 06/20/24 13:58 100 MLS/HR Metronidazole 100 ml @ 100 mls/hr Q8HR IV 06/19/24 14:00 06/20/24 13:58 100 MLS/HR Lactated Ringer's 1,000 ml @ 125 mls/hr Q8H IV 06/20/24 15:15 UNV Examination General Appearance: Alert, Oriented X3, Cooperative, Not in acute distress HEENT: Atraumatic, Mucous membranes moist/pink Respiratory: Clear to auscultation, Normal air movement, No added sounds Cardiovascular: Regular rate, Normal S1, Normal S2, No murmurs Abdominal: Incisions healing appropriately, mild tenderness in the incisions, however, no erythema or purulence draining. Extremities: No edema, Normal pulses, No tenderness/swelling Skin: No Significant rash, Neuro: Normal speech, sensorimotor deficits none Psych/Mental Status: Mental status NL, Mood NL Nurse was there as sharperone during examination laboratory and microbiology Laboratory Tests 06/20/24 06:11 Test 06/20/24 06:11 Range/Units Serum Glucose 105 74-106 mg/dL Problem List/Assessment/Plan Problem List/Assessment/Plan Acute intractable abdominal pain Acute uncomplicated appendicitis S/p appendectomy, postoperative day 1 - CT abdomen pelvis: A tubular structure is seen in the right lower quadrant extending from the cecum to the right ovary surrounding fat stranding likely acute uncomplicated appendicitis. The differential diagnosis includes hydrosalpinx. - Pelvic ultrasound: Fibroid uterus. Nabothian cysts are noted. Small amount of free fluid of the right adnexa. No tubular structure is visualized over the right adnexa. The tubular structure noted on CT within the right hemipelvis appears to represent a fluid-filled distended appendix with mild adjacent fat stranding. - D5 with half NS plus potassium 20 mEq at 120 cc/hour - IV metronidazole Q 8 hours, IV cefazolin Q 8 hours - underwent laparoscopic appendectomy without any complications on 06/19/2024 - passing gas, have not had bowel movement yet. Advance diet to mechanical soft. Plan to discharge tomorrow 06/21/2024. Uterine leiomyoma - as seen on ultrasound - follow up with sap developer in the outpatient Hypokalemia - repleted Advanced to a mechanical soft diet Goals of care: Full code, discussed for >16 minutes on 05/30/24 Plan discussed with patient Plan discussed with Dr. Elizabeth Plan discussed with: Patient, Other (RN) Date of Service: Jun 20, 2024 Billing Provider: ESPERANZA ELIZABETH MD Common Visit Codes: [id number] INP/OBS CARE(HIGH) GENNA ARMSTRONG RESIDENT Jun 20, 2024 15:17 ESPERANZA ELIZABETH MD Jun 20, 2024 17:49
[2024-06-20] MEDS: LACTATED RINGER'S 1,000 ML IV SCH (16:26)
[2024-06-20] MEDS: ACETAMINOPHEN 325 MG TAB PO PRN (16:39)
[2024-06-20 17:26] LABS: Chloride 111 mmol/L (98-107); Potassium 3.7 mmol/L (3.5-5.1); Sodium 140 mmol/L (136-145)
[2024-06-20 17:27] LABS: Anion Gap 4 (5-15); Carbon Dioxide 25 mmol/L (20-31)
[2024-06-20 17:28] LABS: Calcium 8.7 mg/dL (8.7-10.4)
[2024-06-20 17:32] LABS: Glucose 98 mg/dL (74-106)
[2024-06-20 17:34] LABS: BUN/Creatinine Ratio 6.2 (10.0-20.0); Blood Urea Nitrogen < 5 mg/dL (9-23)
[2024-06-21 07:20] VITALS: BP 108/69; PULSE 72; RESP 18; TEMP 98.2
[2024-06-21] MEDS ORDERED: CIPR500T4 PO (08:43)
[2024-06-21] MEDS ORDERED: MET500T PO (08:43)
[2024-06-21 08:59] VITALS: BP 101/67; PULSE 67; RESP 16; TEMP 98.2; O2SAT 91
--- NOTE | 2024-06-21 09:24 | DVHDSRES ---
Discharge Summary Date of Admission Resident Creating Document: GENNA ARMSTRONG RESIDENT Jun 18, 2024 at 22:35 Date of Discharge: Jun 21, 2024 Admitting Diagnosis Intractable abdominal pain Labs/Diagnostic Data: Laboratory Results Test 06/20/24 15:58 06/20/24 06:11 06/19/24 08:17 06/18/24 16:23 Sodium Level 140 mmol/L (136-145) Potassium Level 3.7 mmol/L (3.5-5.1) Chloride Level 111 mmol/L (98-107) Carbon Dioxide Level 25 mmol/L (20-31) Anion Gap 4 (5-15) Blood Urea Nitrogen < 5 mg/dL (9-23) Creatinine 0.81 mg/dL (0.550-1.02) Glomerular Filtration Rate Calc 96 mL/min (>90) BUN/Creatinine Ratio 6.2 (10.0-20.0) Serum Glucose 98 mg/dL (74-106) Calcium Level 8.7 mg/dL (8.7-10.4) White Blood Count 8.3 10^3/uL (4.4-10.8) Red Blood Count 4.28 10^6/uL (4.0-5.20) Hemoglobin 11.8 g/dL (12.2-16.2) Hematocrit 36.0 % (36.0-46.0) Mean Corpuscular Volume 84.2 fL (80.0-100.0) Mean Corpuscular Hemoglobin 27.7 pg (28.0-32.0) Mean Corpuscular Hemoglobin Concent 32.9 g/dL (32.0-36.0) Red Cell Distribution Width 14.3 % (11.8-14.3) Platelet Count 299 10^3/uL (140-450) Mean Platelet Volume 7.3 fL (6.9-10.8) Neutrophils (%) (Auto) 72.7 % (37.0-80.0) Lymphocytes (%) (Auto) 19.1 % (10.0-50.0) Monocytes (%) (Auto) 8.0 % (0.0-12.0) Eosinophils (%) (Auto) 0.1 % (0.0-7.0) Basophils (%) (Auto) 0.1 % (0.0-2.0) Neutrophils # (Auto) 6.0 10 ^3/uL (1.6-8.6) Lymphocytes # (Auto) 1.6 10 ^3/uL (0.4-5.4) Monocytes # (Auto) 0.7 10 ^3/uL (0-1.3) Eosinophils # (Auto) 0 10 ^3/uL (0-0.8) Basophils # (Auto) 0 10 ^3/uL (0-0.2) Nucleated Red Blood Cells 0.0 % Total Bilirubin 0.3 mg/dL (0.2-1.0) Aspartate Amino Transferase (AST) 10 U/L (13-40) Alanine Aminotransferase (ALT) 15 U/L (7-40) Alkaline Phosphatase 47 U/L (46-116) Total Protein 5.7 g/dL (5.7-8.2) Albumin 3.6 g/dL (3.2-4.8) Prothrombin Time 10.9 sec (9.3-11.8) Prothrombin Time INR 1.03 (0.9-1.15) Activated Partial Thromboplast Time 26.5 SEC (24.5-34.5) Urine Color Light-yellow (Yellow) Urine Clarity Clear (Clear) Urine pH 5.0 (5.0-9.0) Urine Specific [place] 1.013 (1.001-1.035) Urine Protein Negative (Negative) Urine Ketones 1+ (Negative) Urine Blood Negative /uL (Negative) Urine Nitrite Negative (Negative) Urine Bilirubin Negative (Negative) Urine Urobilinogen Normal mg/dL (Negative) Urine Leukocyte Esterase Negative /uL (Negative) Urine RBC None seen /hpf (0 - 4) Urine WBC <1 /hpf (0 - 5) Urine Squamous Epithelial Cells Few /hpf (<5) Urine Bacteria None seen /hpf (None Seen) Urine Glucose Normal mg/dL (Normal) Test 06/18/24 15:46 Lactic Acid Level 1.8 mmol/L (0.4-2.0) Troponin I High Sensitivity < 3 ng/L (</=34) Lipase 23 U/L (12-53) Beta HCG, Quantitative 0.0 mIU/mL (1.5-4.2) Other Laboratory Tests 06/20/24 15:58 06/20/24 06:11 Brief Hx & Hospital Course: Patient is a 38-year-old female with past medical history of migraines who came in due to epigastric abdominal pain. According to the patient for the past 2 weeks she has been experiencing dizziness, headaches and a midepigastric abdominal pain. Patient notes that she went to urgent care 2 weeks ago and got a GI cocktail which helped her pain initially, however, per patient her abdominal pain returned yesterday on 06/18/2024. Patient notes that her pain was abrupt in onset, sharp and burning in character, centered in the mid abdominal region, and 10 on 10 in intensity. Hospital course: CT abdomen pelvis showed a tubular structure in the right lower quadrant extending from the cecum to the right ovary surrounding fat stranding likely acute uncomplicated appendicitis. The differential diagnosis includes hydrosalpinx. Subsequently pelvic ultrasound showed fibroid uterus. Nabothian cysts are noted. Small amount of free fluid of the right adnexa. No tubular structures visualized with the right adnexa the tubular structure noted on CT within the right hemipelvis appears to represent a fluid-filled distended appendix with mild adjacent fat stranding. Patient was started on IV D5 with half NS plus potassium 20 mEq at 120 cc/hour along with IV metronidazole Q 8 hours and IV cefazolin Q 8 hours. Surgery was consulted and subsequently patient underwent a laparoscopic appendectomy without any complications on 06/19/2024. On postoperative day 1 patient was able to pass gas, however was not able to pass bowel movement until 2:00 p.m. later that day. Diet was advanced to regular diet. Patient was instructed to follow up with patient care specialist in the outpatient for her uterine leiomyomas as seen on the ultrasound. On the day of discharge, patient appeared well noted improving abdominal pain at the incision sites and had stable vital signs. Patient was transitioned to p.o. metronidazole and p.o. ciprofloxacin and the same medications were prescribed and sent to her preferred pharmacy. Her hospital course was uncomplicated. General Appearance: Alert, Oriented X3, Cooperative, Not in acute distress HEENT: Atraumatic, Mucous membranes moist/pink Respiratory: Clear to auscultation, Normal air movement, No added sounds Cardiovascular: Regular rate, Normal S1, Normal S2, No murmurs Abdominal: Incisions healing appropriately, mild tenderness in the incisions, however, no erythema or purulence draining. Extremities: No edema, Normal pulses, No tenderness/swelling Skin: No Significant rash, Neuro: Normal speech, sensorimotor deficits none Psych/Mental Status: Mental status NL, Mood NL Nurse was there as sharperone during examination Operations or Procedures Procedure: CT CT AB PEL WO CON-NO ORAL OR IV 06/18/2024 05:05 PM Indication:abd pain. Comparison Study: None available at time of dictation. Technique: Axial images were obtained and reformatted in coronal and sagittal planes. All CT scans at this medical facility are performed using dose modulation techniques as appropriate to a performed exam including the following: Automated exposure control was utilized; adjustment of the MA and/or KV according to patient size; and use of iterative reconstruction technique. CT Dose: CTDI volume is 15.18 mGy. Dose-length product is 800.15 mGy*cm FINDINGS: Lower Chest: Unremarkable. Hepatobiliary: Gallbladder is moderately distended. No gallbladder wall thickening, pericholecystic fluid or calcified gallstones noted. Spleen: Unremarkable. Pancreas: Unremarkable. Adrenal Glands: Unremarkable. tract: The kidneys are normal in size bilaterally without hydronephrosis or nephrolithiasis. The urinary bladder is unremarkable. GI tract: The stomach is grossly normal in appearance. No evidence of small bowel obstruction. The large bowel is unremarkable. A tubular structure is seen in right lower quadrant extending from the cecum to the right ovary surrounding fat stranding likely acute appendicitis. The differential diagnosis includes hydrosalpinx. Lymphatics: No mesenteric, retroperitoneal or periportal lymphadenopathy. Vasculature: The abdominal aorta is normal in in caliber. Pelvic Organs: The right ovary is slightly enlarged and appears edematous likely reactive to appendicitis. The left ovary is unremarkable. The uterus is anteverted and slightly bulky. Bones/soft tissues: No acute abnormality. Degenerative disc disease at L5-S1 noted. Other: None. IMPRESSION: 1. A tubular structure is seen in right lower quadrant extending from the cecum to the right ovary surrounding fat stranding likely acute non complicated appendicitis. The differential diagnosis includes hydrosalpinx. Recommend correlation pelvic sonogram and surgical consultation. Procedure: US PELVIC Study Date and Requested Time: 06/18/2024 07:43 PM Study Description: US PELVIC History: abd pain Comparison: CT abdomen and pelvis 06/18/2024 Technique: Multiple transabdominal and transvaginal high resolution tom-scale images obtained of the uterus and adnexa with color Doppler for evaluation of adnexal blood flow and vascularity as indicated. Findings: Uterus 10.1 x 5.8 x 6.3 cm, with homogeneous echotexture. Endometrium within normal limits, measuring 0.5 cm in thickness with smooth contour. Cervix within normal limits. Multiple nabothian cysts are noted, largest measuring up to 0.8 cm Right ovary measures 2.8 x 1.5 x 2.3 cm with a 0.9 cm dominant follicle /small cyst. Left ovary measures 2 x 1.4 x 2.3 cm with a 1.1 cm dominant follicle /small cyst. Normal ovarian color Doppler flow bilaterally. Small amount of free fluid of the right adnexa. Impression: Fibroid uterus. Nabothian cysts are noted. Small amount of free fluid of the right adnexa. No tubular structure is visualized over the right adnexa. The tubular structure noted on CT within the right hemipelvis appears to represent a fluid-filled distended appendix with mild adjacent fat stranding. DATE OF SURGERY: 06/19/2024 PREOPERATIVE DIAGNOSIS: Appendicitis. POSTOPERATIVE DIAGNOSIS: Appendicitis. SURGEON: Magen Allen MD ANESTHESIA: General endotracheal. ANESTHESIOLOGIST: Dr. Carter. PROCEDURE: Laparoscopy, laparoscopic appendectomy. DESCRIPTION OF PROCEDURE: Under general anesthesia with the patient's skin prepped and draped, abdomen was incised above the umbilicus and a Veress needle inserted by the hanging drop technique to establish pneumoperitoneum to 15 mmHg pressure by insufflation with carbon dioxide. With the abdomen fully distended, the needle was removed and replaced with a 5 mm trocar port through which a 0-degree viewing laparoscope was inserted and under direct vision, an additional 5 mm port was inserted through the subxiphoid skin and a 10 mm port infraumbilically. Laparoscopy was hampered by the patient's obesity; however, no obvious unexpected pathology was encountered. Appendix was inflamed and it was tortuous. It was placed on tension traced to its confluence with the cecum at the base of the appendix at the confluence with the cecum, it was crossclamped and divided using the Endo-MARLO stapler equipped with vascular aries. The fully mobilized appendix was removed from the peritoneal cavity by placement in a specimen extraction bag and removing it through the subumbilical 10 mm port site. Right lower quadrant was then irrigated, irrigant was aspirated. Hemostasis was meticulously accomplished, found to be complete. At the termination of procedure, there was no evidence of bleeding from either the port sites or from the appendicectomy site. Instrumentation was withdrawn. Pneumoperitoneum was evacuated. Fascial defect closed with 0 Vicryl. Metastatic skin aries approximating the skin edges. The patient remained stable throughout the procedure, left the operating room following an accurate needle and sponge count. No family members were present in the waiting room. Condition at Discharge: Good Final Diagnosis/Problems List Acute intractable abdominal pain Acute uncomplicated appendicitis S/p appendectomy Uterine leiomyoma Hypokalemia Discharge Disposition: Home Discharge Instruct/Medications Diet: Regular Activity: No Restrictions, As Tolerated Follow Up/Referral: Follow up with primary care physician within a week. follow up discharge clinic follow up with surgery outpatient Medications: as per MAR take the antibiotics as prescribed. Discharge Statement: "Patient was advised to return to the ER or call 911 if any headaches, dizziness, shortness of breath, chest pain, abdominal pain, bleeding, fevers, or worsening of medical condition. Patient was counseled about treatment plan, medications, possible side effects, patientverbalized understanding. All questions were answered to the best of my ability. This discharge took greater then 30 minutes in planning, reviewing documentation, counseling the patient, and discussing with other team members." ASSESSMENT ASSESSMENT Assessment Acute intractable abdominal pain Acute uncomplicated appendicitis S/p appendectomy Uterine leiomyoma Hypokalemia Date of Service: Jun 21, 2024 Billing Provider: ESPERANZA FERNANDES MD Common Visit Codes: 23829-GUE/OBS DISCH DAY >30min GENNA ARMSTRONG Jun 21, 2024 09:24 ESPERANZA FERNANDES MD Jun 21, 2024 17:57
[2024-06-21] MEDS: CIPROFLOXACIN HCL 500 MG TAB PO SCH (09:59)
[2024-06-21 10:16] VITALS: BP 101/67; PULSE 67; RESP 16; TEMP 98.2; O2SAT 91
[2024-06-21] MEDS: HYDROcodone-ACET 5/325MG TAB PO PRN (11:03)
[2024-06-21 11:45] VITALS: BP 117/84; PULSE 68; RESP 18; TEMP 98.4; O2SAT 94
[2024-06-21] MEDS ORDERED: metroNIDAZOLE 500 MG TAB PO SCH (14:00)
--- NOTE | 2024-06-21 14:21 | DVHPN2 ---
Progress Note Date Seen: Jun 21, 2024 Medical Necessity Reason Pt with a Central, PICC or Fol: No Objective vital signs Vital Sign Date Time Temp Pulse Resp B/P (MAP) Pulse Ox O2 Delivery O2 Flow Rate FiO2 06/21/24 11:45 98.4 68 18 117/84 (95) 94 98.4 06/21/24 08:15 Room Air* 0 21 Total Intake and Output 06/20/24 06/20/24 06/21/24 15:00 23:00 07:00 Intake Total 500 ml 1170 ml 600 ml Output Total 680 ml Balance 500 ml 1170 ml -80 ml medications Current Medications Medications Dose Ordered Sig/Jai Route Start Time Stop Time Status Last Admin Dose Admin Sodium Chloride 10 ml Q8HR IV 06/19/24 06:00 06/21/24 14:07 10 ML Ondansetron HCl 4 mg Q4HP PRN IV 06/18/24 22:45 06/20/24 22:00 4 MG Docusate Sodium 100 mg BIDPRN PRN PO 06/18/24 22:45 06/20/24 05:56 100 MG Acetaminophen 650 mg Q6HP PRN PO 06/18/24 22:45 06/21/24 14:07 650 MG Nitroglycerin 0.4 mg Q5MINP PRN SL 06/18/24 22:45 Ciprofloxacin 500 mg Q12HR PO 06/21/24 10:00 06/21/24 09:59 500 MG Metronidazole 500 mg Q8HR PO 06/21/24 14:00 Acetaminophen/ Hydrocodone Bitart 1 tab Q6HPRN PRN PO 06/21/24 11:00 06/21/24 11:03 1 TAB laboratory and microbiology Laboratory Tests 06/20/24 15:58 06/20/24 06:11 Test 06/20/24 15:58 Range/Units Serum Glucose 98 74-106 mg/dL Problem List/Assessment/Plan Problem List/Assessment/Plan 06/20/24 feels well. Passing flatus, tolerating po, abdomen soft and non distended, appropriately tender, wound dressings dry and clean, ok to advance po intake, DC home on 06/21/24 feels well, tolerating po intake, no nausea, no vomiting, wounds clean and well approximated, abdomen appropriately tender, cleared for discharge, instructions given Plan discussed with: Patient FRANDY OLSEN MD Jun 21, 2024 14:21
== END 2024-06-21 15:14 | disposition home or self-care (01) | DRG 234 ==
LOC: ER 15:04 → OVERFLOW 22:35 → WEST WING 06-19 12:34
PROVIDERS: ADMIT Internal Medicine; ATTEND Internal Medicine
PROC: 0DTJ4ZZ Resection of Appendix, Percutaneous Endoscopic Approach (ICD-10-PCS; principal; 2024-06-19 09:11)
DX: K37 Unspecified appendicitis (principal); D25.9 Leiomyoma of uterus, unspecified; E87.6 Hypokalemia; N88.8 Other specified noninflammatory disorders of cervix uteri; G43.909 Migraine, unspecified, not intractable, without status migrainosus; E66.9 Obesity, unspecified; Z87.891 Personal history of nicotine dependence; Z56.0 Unemployment, unspecified; Z68.36 Body mass index [BMI] 36.0-36.9, adult; Z79.899 Other long term (current) drug therapy
CPT/HCPCS: 36415; 71045; 74176; 76830; 76856; 80048; 80053; 81001; 83605; 83690; 84484; 84702; 85025; 85610; 85730; 93005; G0378; J0330; J1100; J1885; J2250; J2405; J2543; J2704; J3490; Q0162

== ENCOUNTER 2025-05-10 08:41 | Emergency (ER) | payer MEDICAID ==
[~2025-05-10] VITALS: Ht 165.1 cm; Wt 94.5 kg
[~2025-05-10 08:41] MED LIST: CIPR500T4 PO; MET500T PO
[2025-05-10 08:46] VITALS: BP 111/77; RESP 16; TEMP 99.2; O2SAT 96
[2025-05-10 08:57] VITALS: PULSE 84
--- NOTE | 2025-05-10 09:32 | ED.PDOC ---
General HPI Comments A 39 YEAR OLD FEMALE PRESENTS TO THE ED WITH COMPLAINT OF UTI SYMPTOMS. PATIENT STATES HE HAS BEEN EXPERIENCING A FOUL URINE ODOR, SUPRAPUBIC PRESSURE, AND URINARY URGENCY FOR THE PAST 3 DAYS. PATIENT IS CONCERNED THAT SHE MAY HAVE A URINARY TRACT INFECTION AND WOULD LIKE TO BE EVALUATED. PATIENT DENIES HEMATURIA, FLANK PAIN, FEVER, CHILLS, SHORTNESS OF BREATH, CHEST PAIN, ABDOMINAL PAIN, NAUSEA, VOMITING, HEADACHE, OR OTHER COMPLAINTS. NO OTHER SYMPTOMS OR MODIFYING FACTORS AT THIS TIME. PATIENT IS ALERT, ORIENTED X 4, AND HAS STEADY GAIT. Chief Complaint: Urinary Time Seen by MD: 08:57 Primary Care Provider: LAW Lino notes: Nurses Notes, Medications, Allergies Allergies: Coded Allergies: NO KNOWN ALLERGIES (Unverified , 09/13/15) Home Meds Active Scripts Ibuprofen (Ibuprofen) 800 Mg Tab, 1 TAB PO TID, #30 TAB Prov:ARLEN ROJAS 05/10/25 Pantoprazole Sodium Sesquihydr (Protonix) 40 Mg Tab, 40 MG PO DAILY, #20 TAB Prov:ARLEN ROJAS 05/10/25 Metronidazole (Metronidazole) 500 Mg Tab, 500 MG PO TID for 5 Days, #15 TAB Prov:GENNA ARMSTRONG RESIDENT 06/21/24 Ciprofloxacin Hcl (Ciprofloxacin Hcl) 500 Mg Tab, 1 TAB PO BID for 5 Days, #10 TAB Prov:GENNA ARMSTRONG RESIDENT 06/21/24 Information Source: Patient Mode of Arrival: Ambulatory Severity: Moderate Inability to void: None Timing: Days Duration: Since onset, Days Prehospital treatment: None Onset: Spontaneous Symptoms: Dysuria, Frequency, Urgency, Other (SUPRAPUBIC PRESSURE) History of: None Location: Suprapubic Modifying factors: None associated signs and symptoms: None Past Medical History PAST MEDICAL HISTORY: Anxiety, GERD Surgical History: Appendectomy, Denies all surgeries RACE ENGINE BUILDER History: No Pertinent RACE ENGINE BUILDER History Family History Family History: Reviewed,noncontributory to illness Social History Smoker: Cigarettes, Less Than 1 Pack/Day Alcohol: Rarely Drugs: Denies Drug Use Lives In: Home Constitutional: reports: others (ANXIETY ); denies: chills, diaphoresis, fatigue, fever, malaise, sweats, weakness EENTM: denies: blurred vision, double vision, ear bleeding, ear discharge, ear drainage, ear pain, ear ringing, eye pain, eye redness, hearing loss, mouth pain, mouth swelling, nasal discharge, nose bleeding, nose congestion, nose pain, photophobia, tearing, throat pain, throat swelling, voice changes, others Respiratory: denies: cough, hemoptysis, orthopnea, SOB at rest, shortness of breath, SOB with excertion, stridor, wheezing, others Cardiovascular: denies: chest pain, dizzy spells, diaphoresis, Dyspnea on exertion, edema, irregular heart beat, left arm pain, lightheadedness, palpitations, PND, syncope, others Gastrointestinal: denies: abdomen distended, abdominal pain, blood streaked bowels, constipated, diarrhea, dysphagia, difficulty swallowing, hematemesis, melena, nausea, poor appetite, poor fluid intake, rectal bleeding, rectal pain, vomiting, others Genitourinary: reports: burning, dysuria, frequency, urgency; denies: abnormal vagina bleeding, dyspareunia, flank pain, hematuria, incontinence, pain, , vagina discharge, others Neurological: denies: dizziness, fainting, headache, left sided numbness, left sided weakness, numbness, paresthesia, pre-existing deficit, right sided numbness, right sided weakness, seizure, speech problems, tingling, tremors, weakness, others Musculoskeletal: denies: back pain, gout, joint pain, joint swelling, muscle pain, muscle stiffness, neck pain, others Integumetry: denies: bruises, change in color, change in hair/nails, dryness, laceration, lesions, lumps, rash, wounds, others Allergic/Immunocompromised: denies: Difficulty Healing, Frequent Infections, Hives, Itching, others Hematologic/Lymphatic: denies: anemia, blood clots, easy bleeding, easy bruising, swollen glands, others Endocrine: denies: excessive hunger, excessive sweating, excessive thirst, excessive urination, flushing, intolerance to cold, intolerance to heat, unexplained weight gain, unexplained weight loss, others Psychiatric: reports: anxiety; denies: bipolar disorder, depression, hopeless, panic disorder, schizophrenia, sleepless, suicidal, others All Other Systems: Reviewed and Negative Physical Exam General Appearance: Mild Distress, Obese, Other (ANXIOUS ) HEENT: Normal ENT Inspection, PERRL/EOMI, Pharynx Normal, TMs Normal Neck: Full Range of Motion, Non-Tender, Normal, Normal Inspection Respiratory: Chest Non-Tender, Lungs Clear, No Accessory Muscle Use, No Respiratory Distress, Normal Breath Sounds Cardiovascular: No Edema, No JVD, No Murmur, No Gallop, Normal Peripheral Pulses, Regular Rate/Rhythm Breast Exam: Deferred Gastrointestinal: No Organomegaly, Non Tender, No Pulsatile Mass, Normal Bowel Sounds, Soft Genitalia: Deferred Pelvic: Normal External Exam, Tender Uterus, Other (TENDERNESS VAGINAL AND SUPRAPUBIC REGION, NO GUARDING AND REBOUND TENDERNESS. ) Rectal: Deferred Extremities: No calf tenderness, Normal capillary refill, Normal inspection, Normal range of motion, Non-tender, No pedal edema Musculoskeletal : Apperance: Normal Neurologic: Alert, balance recesser II-XII nml as Tested, No Motor Deficits, Normal Affect, Normal Mood, No Sensory Deficits Cerebellar Function: Normal Reflexes: Normal Skin: Dry, Normal Color, Warm Peripheral Pulses: 2+ carotid (R), 2+ carotid (L) Lymphatic: No Adenopathy Was a procedure done? Was a procedure done?: No Differential Diagnosis Kidney stone (Female): N/A Kidney stone (Male): N/A Penile/Scrotal: N/A Urinary Problem (Male): UTI, N/A Urinary Problem (Female): Pyelonephritis, Urolithiasis, UTI, Vaginitis X-Ray, Labs, Meds, VS Vital Signs Date Time Temp Pulse Resp B/P (MAP) Pulse Ox O2 Delivery O2 Flow Rate FiO2 05/10/25 08:57 84 05/10/25 08:46 99.2 80 16 111/77 96 99.2 Lab Test 05/10/25 09:25 Range/Units Urine Color Yellow Yellow Urine Clarity Turbid H Clear Urine pH 6.0 5.0-9.0 Urine Specific [place] 1.027 1.001-1.035 Urine Protein Negative Negative Urine Ketones Negative Negative Urine Blood Negative Negative /uL Urine Nitrite Negative Negative Urine Bilirubin Negative Negative Urine Urobilinogen Normal Negative mg/dL Urine Leukocyte Esterase Negative Negative /uL Urine RBC 2 0 - 4 /hpf Urine Microscopic WBC 1 0-5 /HPF Urine Squamous Epithelial Cells Mod <5 /hpf Urine Bacteria Few H None Seen /hpf Urine Mucus Few None Seen Urine Glucose Normal Normal mg/dL INDICATION: SUPRAPUBIC PAIN TECHNIQUE: Multiple real-time grayscale transabdominal and transvaginal so nographic images along with color and duplex Doppler of the uterus and ovaries were obtained. COMPARISON: US TRANSVAGINAL US NON OB on DOS: 06/18/24, US PELVIC on DOS: 06/18/24, CT CT AB PEL WO CON-NO ORAL OR IV on DOS: 06/18/24 FINDINGS: The uterus measures 8.6 x 7.2 x 5.8 cm. The uterus is heterogeneous with multiple intrauterine fibroids with the largest measuring 2.6 cm. The endometrial stripe measures 1.2cm. The right ovary measures 3.5 x 2.4 x 2.6 cm. The left ovary measures 2.4 x 1.6 x 1.7 cm. Subsequent color and duplex Doppler interrogation of the ovaries demonstrated symmetric vascular flow to both ovaries, though this does not exclude the possibility of torsion due to the dual blood supply. IMPRESSION: Heterogeneous leiomyomatous uterus. ATED BY: ALISSA LEY MD DICTATED DATE/TIME: 05/10/25 104 SIGNED BY: ALISSA LEY MD SIGNED DATE/TIME: 05/10/25 104 CC: X-Ray, Labs, Meds, VS Comment EXTERNAL MEDICAL RECORDS REVIEWED: [NONE] INDEPENDENT HISTORIANS: [NONE] SOCIAL DETERMINANTS OF HEALTH: [NONE] LABS ORDERED: UA REVIEWED AND INTERPRETED RESULTS: NORMAL IMAGING ORDERED: NONE TREATMENTS ORDERED: NORCO 5/325 PO PROCEDURES PERFORMED: NONE CRITICAL CARE TIME: NONE I HAVE DISCUSSED THE PATIENT WITH THE ATTENDING PHYSICIAN DR. HAND AND SHE AGREES WITH THE PATIENT'S PLAN OF CARE AND DISPOSITION. BASED ON HISTORY OF PRESENT ILLNESS, AND PHYSICAL EXAM, PATIENT WILL BE DISCHARGED HOME. DISCUSSED PLAN FOR DISCHARGE HOME WITH RX [PROTONIX AND MOTRIN *]. MEDICATION WARNINGS GIVEN. SHARED DECISION MAKING: DISCUSSED WITH PATIENT THAT THEIR WORKUP WAS NORMAL. PATIENT INSTRUCTED TO FOLLOW UP WITH PRIMARY CARE PROVIDER IN 1-2 DAYS FOR RE- EVALUATION OF SYMPTOMS. PATIENT VERBALIZES UNDERSTANDING TO RETURN TO ED FOR NEW OR WORSENING SYMPTOMS OR IF FOLLOW UP WITH PCP CANNOT BE OBTAINED. PATIENT FEELS COMFORTABLE GOING HOME AT THIS TIME. ALL QUESTIONS ADDRESSED AT TIME OF DISCHARGE. Images Reviewed?: Images reviewed and evaluated by me Time of 1ST Reevaluation: 11:22 Reevaluation 1ST: Improved Patient Education/Counseling: Diagnosis, Treatment, Need For Follow Up Family Education/Counseling: Diagnosis, Treatment, Need For Follow Up SEPSIS Sepsis Screen Date sepsis recognized/suspect: May 10, 2025 Time Sepsis recognized/suspect: 0848 Recent Procedure: No On Antibiotic Therapy: No Respiratory Rate >20: No Heart Rate >90: No Temp<36 C (96.8 F) or >38.3 C: No SBP <90 or MAP <65 mmHG: No New Acute Mental Status Change: No Is the patient on CPAP, BIPAP,: No Physician Orders Electrocardigram (05/10/25 08:50) Pelvic (05/10/25 10:07) Vital Signs Date Time Temp Pulse Resp B/P (MAP) Pulse Ox O2 Delivery O2 Flow Rate FiO2 05/10/25 08:57 84 05/10/25 08:46 99.2 80 16 111/77 96 99.2 Departure 1 Departure Time of Disposition: 11:23 Impression: Primary Impression: Uterine fibroid Qualified Codes: D25.1 - Intramural leiomyoma of uterus Disposition: HOME / SELF CARE / HOMELESS Condition: Stable Additional Instructions: FOLLOW-UP WITH PCP IN 1 TO 2 DAYS. TAKE MEDICATIONS PRESCRIBED. RETURN TO ED FOR ANY NEW OR WORSENING SYMPTOMS. e-Prescriptions Ibuprofen (Ibuprofen) 800 Mg Tab 1 TAB PO TID, #30 TAB Prov: ARLEN ROJAS 05/10/25 Pantoprazole Sodium Sesquihydr (Protonix) 40 Mg Tab 40 MG PO DAILY, #20 TAB Prov: ARLEN ROJAS 05/10/25 Discharged With: Self Critical Care Note Critical Care Time?: No Stability Stability form required: No I personally scribed for ARLEN ROJAS ([email or web address]) on 05/10/25 at 09:32. E lectronically submitted by Raghav Cameron ([email or web address]). I personally scribed for ARLEN ROJAS ([email or web address]) on 05/10/25 at 11:09. El ectronically submitted by Raghav Cameron ([email or web address]). ARLEN ROJAS May 10, 2025 09:32
[2025-05-10 09:52] LABS: Urine Protein, UAD Negative (Negative)
--- NOTE | 2025-05-10 10:48 | DVH ---
INDICATION: SUPRAPUBIC PAIN TECHNIQUE: Multiple real-time grayscale transabdominal and transvaginal sonographic images along with color and duplex Doppler of the uterus and ovaries were obtained. COMPARISON: US TRANSVAGINAL US NON OB on DOS: 06/18/24, US PELVIC on DOS: 06/18/24, CT CT AB PEL WO C ON-NO ORAL OR IV on DOS: 06/18/24 FINDINGS: The uterus measures 8.6 x 7.2 x 5.8 cm. The uterus is heterogeneous with multiple intrauter ine fibroids with the largest measuring 2.6 cm. The endometrial stripe measures 1.2cm. The right ovary measures 3.5 x 2.4 x 2.6 cm. The left ovary measures 2.4 x 1.6 x 1.7 cm. Subsequent color and duplex Doppler interrogation of the ovaries demonstrated symmetric vascular flow to both ovaries, though this does not exclude the possibility of torsion due to the dual blood suppl y. IMPRESSION: Heterogeneous leiomyomatous uterus.
[2025-05-10] MEDS ORDERED: PANT40TA2 PO (11:16)
[2025-05-10] MEDS ORDERED: IBUP-1456 PO (11:16)
[2025-05-10] MEDS: HYDROcodone-ACET 5/325MG TAB PO ONE (11:21)
--- NOTE | 2025-05-13 12:15 | ECG ---
[facility] Test Date: 2025-05-10 Test Time: 08:54:56 Pat Name: JENNY BAUTISTA Department: ED Room: Gender: F Emergency Medicine Specialist: corbin : 1985 Requested By: MAGNO HAND Order Number: [id number] Reading MD: Piyush Trammell Measurements Intervals [place] Rate: 84 P: 74 OK: 169 QRS: 61 QRSD: 92 T: 32 QT: 391 QTc: 463 Interpretive Statements Sinus rhythm Low voltage, precordial leads Probable anteroseptal infarct, old Electronically Signed On 05-13-2025 18:42:16 PDT by Piyush Trammell Please click the below link to view image of tracing.
== END 2025-05-10 11:27 | disposition home or self-care (01) ==
LOC: ER 08:41
DX: D25.1 Intramural leiomyoma of uterus (principal); F41.9 Anxiety disorder, unspecified; K21.9 Gastro-esophageal reflux disease without esophagitis; F17.210 Nicotine dependence, cigarettes, uncomplicated; Z79.899 Other long term (current) drug therapy; Z90.49 Acquired absence of other specified parts of digestive tract
CPT/HCPCS: 76856; 81001; 93005